=== PATIENT | female | born 1950 | race Caucasian/White ===

== ENCOUNTER 2021-06-02 11:55 | Inpatient (IN) | payer MEDICARE ==
[2021-06-02 13:39] LABS: #Eosinphils 0.1 10x3/uL (0.0-0.5); #Monocytes 0.4 10x3/uL (0.0-1.1); #Neutrophils 3.5 10x3/uL (1.5-8.4); %Basophils 0.6 % (0.0-2.0); %Eosinophils 2.5 % (0.0-6.0); %Lymphocytes 20.9 % (18.0-47.0); %Monocytes 7.7 % (0.0-10.0); %Neutrophils 67.7 % (40.0-75.0); Hemoglobin 11.3 g/dL (12.0-15.5); Mean Corpuscular HGB CONC 29.2 g/dL (32.0-36.0); Mean Corpuscular Hemoglobin 25.1 pg (27.0-33.0); Mean Platelet Volume 10.3 fl (7.4-10.4); Platelet Count 191 10x3/uL (150-450); RBC Distribution Width 20.7 % (11.5-14.5); White Blood Cell (WBC) Count 5.2 10x3/uL (3.5-10.5)
[2021-06-02 13:56] LABS: ALT (SGPT) 12 U/L (8-55); AST (SGOT) 15 U/L (5-34); Albumin 3.2 g/dL (3.4-4.8); Alkaline Phosphatase 75 U/L (40-110); Anion Gap 13 mmol/L (10-20); BUN (Urea Nitrogen) 21 mg/dL (9.8-20.1); Bilirubin, Total 0.6 mg/dL (0.2-1.2); Calc. Creatinine Clearance 0 mL/min (70-130); Calcium 8.2 mg/dL (7.8-10.44); Carbon Dioxide 31 mmol/L (23-31); Chloride 99 mmol/L (98-107); Globulin 2.3 g/dL (2.4-3.5); Glucose 135 mg/dL (80-115); Potassium 3.1 mmol/L (3.5-5.1); Protein, Total 5.5 g/dL (5.8-8.1); Sodium 140 mmol/L (136-145)
[2021-06-02] MEDS ORDERED: Furosemide 40 MG/4 ML VIAL ONE ×2 (14:17→22:57)
[2021-06-02] MEDS ORDERED: Potassium Chloride 20 MEQ TAB ONE (14:17)
[2021-06-02 14:55] LABS: Ovalocytes SLIGHT = 2-5 cells (100X) (0-1/hpf); Platelet Morphology Comment Appears Adequate
[2021-06-02] MEDS ORDERED: traMADol HCl 50 MG TAB ONE (17:40)
[2021-06-02] MEDS ORDERED: HumaLOG 300 UNITS/3 ML VIAL SC PRN ×2 (19:45)
[2021-06-02] MEDS ORDERED: Ondansetron ODT 4 MG TAB PO PRN (19:45)
[2021-06-02] MEDS ORDERED: Dextrose 50% Abboject 50 ML SYRINGE SLOW IVP PRN (19:45)
[2021-06-02] MEDS ORDERED: Acetaminophen 325 MG TAB PO PRN (19:45)
[2021-06-02] MEDS ORDERED: Dextrose 5% in Water 1,000 ML IV PRN (19:45)
[2021-06-02] MEDS ORDERED: Acetaminophen 650 MG Suppository PR PRN (19:45)
[2021-06-02] MEDS ORDERED: Ondansetron PF 4 MG/2 ML Vial IVP PRN (19:45)
[2021-06-02] MEDS ORDERED: Electrolyte Replacement Protocol 1 EACH FS SCH (20:30)
[2021-06-02 23:51] LABS: Anion Gap 13 mmol/L (10-20); BUN (Urea Nitrogen) 20 mg/dL (9.8-20.1); Calc. Creatinine Clearance 0 mL/min (70-130); Calcium 8.2 mg/dL (7.8-10.44); Carbon Dioxide 28 mmol/L (23-31); Chloride 101 mmol/L (98-107); Glucose 137 mg/dL (80-115); Sodium 138 mmol/L (136-145)
[2021-06-02] MEDS ORDERED: Furosemide 40 MG/4 ML VIAL SLOW IVP SCH (23:59)
[2021-06-03] MEDS ORDERED: traMADol HCl 50 MG TAB ONE (03:05)
[2021-06-03 03:19] LABS: #Eosinphils 0.2 10x3/uL (0.0-0.5); #Monocytes 0.5 10x3/uL (0.0-1.1); #Neutrophils 2.9 10x3/uL (1.5-8.4); %Basophils 0.6 % (0.0-2.0); %Eosinophils 3.1 % (0.0-6.0); %Lymphocytes 30.4 % (18.0-47.0); %Monocytes 9.7 % (0.0-10.0); Hemoglobin 13.2 g/dL (12.0-15.5); Mean Corpuscular HGB CONC 28.7 g/dL (32.0-36.0); Mean Platelet Volume 10.2 fl (7.4-10.4); Platelet Count 190 10x3/uL (150-450); Platelet Morphology Comment Appears Adequate; RBC Distribution Width 21.4 % (11.5-14.5); RBC Morphology Normal; Red Blood Cell (RBC) Count 5.29 10x6/uL (3.90-5.03); White Blood Cell (WBC) Count 5.2 10x3/uL (3.5-10.5)
[2021-06-03 03:44] LABS: Anion Gap 17 mmol/L (10-20); BUN (Urea Nitrogen) 20 mg/dL (9.8-20.1); Calc. Creatinine Clearance 0 mL/min (70-130); Calcium 8.7 mg/dL (7.8-10.44); Carbon Dioxide 29 mmol/L (23-31); Chloride 98 mmol/L (98-107); Glucose 102 mg/dL (80-115); Potassium 4.6 mmol/L (3.5-5.1); Sodium 139 mmol/L (136-145)
[2021-06-03] MEDS ORDERED: Furosemide 100 MG/10 ML VIAL ONE (08:36)
[2021-06-03] MEDS ORDERED: Furosemide 40 MG/4 ML VIAL SLOW IVP SCH (09:00)
[2021-06-03] MEDS: Furosemide 40 MG/4 ML VIAL SLOW IVP SCH ×2 (09:16→14:28)
[2021-06-03] MEDS ORDERED: traMADol HCl 50 MG TAB PO PRN (13:16)
[2021-06-03 15:39] VITALS: BMI 40.9
[2021-06-03] MEDS: Metoprolol Tartrate 25 MG TAB PO SCH (20:29)
[2021-06-03] MEDS: Apixaban 5 MG TAB PO SCH (20:29)
[2021-06-04 04:42] LABS: ALT (SGPT) 10 U/L (8-55); AST (SGOT) 14 U/L (5-34); Albumin 2.9 g/dL (3.4-4.8); Alkaline Phosphatase 77 U/L (40-110); Anion Gap 15 mmol/L (10-20); BUN (Urea Nitrogen) 20 mg/dL (9.8-20.1); Bilirubin, Total 0.6 mg/dL (0.2-1.2); Calc. Creatinine Clearance 74 mL/min (70-130); Calcium 8.3 mg/dL (7.8-10.44); Carbon Dioxide 31 mmol/L (23-31); Chloride 98 mmol/L (98-107); Globulin 2.3 g/dL (2.4-3.5); Glucose 122 mg/dL (80-115); Potassium 3.5 mmol/L (3.5-5.1); Protein, Total 5.2 g/dL (5.8-8.1); Sodium 140 mmol/L (136-145)
[2021-06-04] MEDS ORDERED: Levothyroxine Sodium 100 MCG TAB PO SCH (06:00)
[2021-06-04] MEDS ORDERED: Potassium Chloride 20 MEQ TAB PO SCH (06:00)
[2021-06-04] MEDS: Furosemide 40 MG/4 ML VIAL SLOW IVP SCH (07:30)
[2021-06-04] MEDS ORDERED: Cholecalciferol 1,000 UNITS (25 MCG) TAB PO SCH (09:00)
[2021-06-04] MEDS ORDERED: SITAGLIPTIN PHOSPHATE 100 MG PO SCH (09:00)
[2021-06-04] MEDS ORDERED: CeleCOXIB 100 MG CAP PO SCH (09:00)
[2021-06-04] MEDS ORDERED: Alogliptin 25 MG TAB PO SCH (09:00)
[2021-06-04] MEDS ORDERED: Fish Oil 1,000 MG CAP PO SCH (09:00)
[2021-06-04] MEDS ORDERED: PATIENT'S HOME MEDICATION PO SCH ×2 (09:00)
[2021-06-04] MEDS: Apixaban 5 MG TAB PO SCH (09:54)
[2021-06-04] MEDS: Metoprolol Tartrate 25 MG TAB PO SCH (09:54)
[2021-06-04] MEDS ORDERED: diphenhydrAMINE 25 MG CAP PO SCH (12:00)
[2021-06-04 12:14] LABS: Potassium 4.3 mmol/L (3.5-5.1)
[2021-06-04 12:18] LABS: Hemoglobin A1c 6.9 % (4.0-6.0)
[2021-06-04 12:48] VITALS: TEMP 97.7
[2021-06-04 14:01] LABS: Free T4 (Free Thyroxine) 0.98 ng/dL (0.70-1.48)
[2021-06-04 15:28] VITALS: BP 109/55
[2021-06-04] MEDS ORDERED: Bumetanide 1 MG TAB PO SCH (16:30)
== END 2021-06-04 17:02 | disposition home or self-care (01) | DRG 291 ==
LOC: CSHERS 11:55 → UNDOADMIN 23:31 → CSHERHOLD 23:31 → CSHICU 06-03 12:11 → CSHTELE 06-03 18:38 → UNDODISIN 06-04 17:02
PROVIDERS: ADMIT Family Medicine; ATTEND Family Medicine
DX: I13.0 Hypertensive heart and chronic kidney disease with heart failure and stage 1 through stage 4 chronic kidney disease, or unspecified chronic kidney disease (principal); I50.43 Acute on chronic combined systolic (congestive) and diastolic (congestive) heart failure; I48.21 Permanent atrial fibrillation; E03.9 Hypothyroidism, unspecified; E11.22 Type 2 diabetes mellitus with diabetic chronic kidney disease; N18.9 Chronic kidney disease, unspecified; D63.1 Anemia in chronic kidney disease; E78.5 Hyperlipidemia, unspecified; G89.29 Other chronic pain; M17.12 Unilateral primary osteoarthritis, left knee; E87.6 Hypokalemia; Z79.01 Long term (current) use of anticoagulants; Z79.899 Other long term (current) drug therapy; Z79.4 Long term (current) use of insulin; Z98.890 Other specified postprocedural states
CPT/HCPCS: 36415; 36416; 71045; 80048; 80053; 83036; 83735; 83880; 84439; 84443; 84481; 84484; 85025; 93005; 93306; 94760; 97139; J1815; J1940

== ENCOUNTER 2021-06-18 16:58 | Emergency (ER) | payer OTHER, MEDICARE ==
[2021-06-18] MEDS ORDERED: Boostrix 0.5 ML (Tdap) VIAL ONE (17:42)
[2021-06-18] MEDS ORDERED: Acetaminophen 500 MG TAB ONE (17:43)
[2021-06-18 19:11] LABS: #Basophils 0.1 10x3/uL (0.0-0.2); #Eosinphils 0.1 10x3/uL (0.0-0.5); #Monocytes 0.7 10x3/uL (0.0-1.1); #Neutrophils 3.5 10x3/uL (1.5-8.4); %Basophils 0.8 % (0.0-2.0); %Eosinophils 1.2 % (0.0-6.0); %Lymphocytes 27.1 % (18.0-47.0); %Monocytes 11.2 % (0.0-10.0); Hemoglobin 13.7 g/dL (12.0-15.5); Mean Corpuscular HGB CONC 30.6 g/dL (32.0-36.0); Mean Corpuscular Hemoglobin 25.8 pg (27.0-33.0); Mean Corpuscular Volume 84.2 fl (81.6-98.3); Mean Platelet Volume 10.4 fl (7.4-10.4); Platelet Count 240 10x3/uL (150-450); Red Blood Cell (RBC) Count 5.31 10x6/uL (3.90-5.03); White Blood Cell (WBC) Count 5.9 10x3/uL (3.5-10.5)
[2021-06-18 19:14] LABS: PTT 27.7 sec (22.0-33.0); Prothrombin Time 11.1 sec (9.5-12.1)
[2021-06-18 19:17] LABS: ALT (SGPT) 11 U/L (8-55); AST (SGOT) 21 U/L (5-34); Albumin 3.8 g/dL (3.4-4.8); Alkaline Phosphatase 91 U/L (40-110); Anion Gap 17 mmol/L (10-20); BUN (Urea Nitrogen) 28 mg/dL (9.8-20.1); Bilirubin, Total 0.5 mg/dL (0.2-1.2); Calc. Creatinine Clearance 0 mL/min (70-130); Calcium 9.4 mg/dL (7.8-10.44); Carbon Dioxide 26 mmol/L (23-31); Chloride 91 mmol/L (98-107); Globulin 3.6 g/dL (2.4-3.5); Glucose 152 mg/dL (80-115); Potassium 3.8 mmol/L (3.5-5.1); Protein, Total 7.4 g/dL (5.8-8.1); Sodium 130 mmol/L (136-145)
[2021-06-18 19:30] LABS: SARS-CoV-2 NAA Rapid Test Not Detected (NotDetected)
== END 2021-06-18 22:21 | disposition short-term general hospital (02) ==
LOC: CSHERS 16:58
DX: S01.01XA Laceration without foreign body of scalp, initial encounter (principal); S06.5X0A Traumatic subdural hemorrhage without loss of consciousness, initial encounter; W01.10XA Fall on same level from slipping, tripping and stumbling with subsequent striking against unspecified object, initial encounter; Z20.822 Contact with and (suspected) exposure to COVID-19; E11.9 Type 2 diabetes mellitus without complications; E03.9 Hypothyroidism, unspecified; I10 Essential (primary) hypertension; M19.90 Unspecified osteoarthritis, unspecified site
CPT/HCPCS: 12001; 70450; 80053; 85025; 85610; 85730; 90471; 90715; 99284; U0002

== ENCOUNTER 2021-06-24 10:45 | Outpatient (CLI) | payer MEDICARE | END 2021-06-24 10:46 | disposition home or self-care (01) | LOC: CSHCT 10:45 | PROVIDERS: ATTEND Neurological Surgery | DX: R51.9 Headache, unspecified (principal); S06.2X9D Diffuse traumatic brain injury with loss of consciousness of unspecified duration, subsequent encounter | CPT/HCPCS: 70450 ==

== ENCOUNTER 2021-07-22 08:53 | Outpatient (CLI) | payer MEDICARE | END 2021-07-22 08:54 | disposition home or self-care (01) | LOC: CSHCT 08:53 | PROVIDERS: ATTEND Neurological Surgery | DX: S06.5X0S Traumatic subdural hemorrhage without loss of consciousness, sequela (principal); S06.5X0A Traumatic subdural hemorrhage without loss of consciousness, initial encounter | CPT/HCPCS: 70450 ==

== ENCOUNTER 2021-08-08 10:03 | Emergency (ER) | payer MEDICARE | END 2021-08-08 13:57 | disposition home or self-care (01) | LOC: CSHERS 10:03 | DX: S70.02XA Contusion of left hip, initial encounter (principal); S09.90XA Unspecified injury of head, initial encounter; E11.9 Type 2 diabetes mellitus without complications; E03.9 Hypothyroidism, unspecified; I10 Essential (primary) hypertension; W19.XXXA Unspecified fall, initial encounter | CPT/HCPCS: 70450; 72170 ==

== ENCOUNTER 2021-09-30 08:41 | Outpatient (CLI) | payer MEDICARE | END 2021-09-30 08:42 | disposition home or self-care (01) | LOC: CSHCT 08:41 | PROVIDERS: ATTEND Neurological Surgery | DX: S06.5X0A Traumatic subdural hemorrhage without loss of consciousness, initial encounter (principal); W19.XXXA Unspecified fall, initial encounter; G93.89 Other specified disorders of brain | CPT/HCPCS: 70450 ==

== ENCOUNTER 2021-12-28 15:32 | Inpatient (IN) | payer MEDICARE ==
[2021-12-28 16:17] LABS: #Basophils 0.1 10x3/uL (0.0-0.2); #Eosinphils 0.1 10x3/uL (0.0-0.5); #Monocytes 0.4 10x3/uL (0.0-1.1); #Neutrophils 3.8 10x3/uL (1.5-8.4); %Basophils 1.1 % (0.0-2.0); %Eosinophils 1.1 % (0.0-6.0); %Lymphocytes 31.2 % (18.0-47.0); %Neutrophils 59.3 % (40.0-75.0); Hemoglobin 15.7 g/dL (12.0-15.5); Mean Corpuscular HGB CONC 33.3 g/dL (32.0-36.0); Mean Corpuscular Hemoglobin 30.7 pg (27.0-33.0); Mean Corpuscular Volume 92.2 fl (81.6-98.3); Mean Platelet Volume 9.9 fl (7.4-10.4); Platelet Count 236 10x3/uL (150-450); Red Blood Cell (RBC) Count 5.12 10x6/uL (3.90-5.03); White Blood Cell (WBC) Count 6.3 10x3/uL (3.5-10.5)
[2021-12-28 16:38] LABS: ALT (SGPT) 18 U/L (8-55); AST (SGOT) 24 U/L (5-34); Albumin 3.6 g/dL (3.4-4.8); Alkaline Phosphatase 83 U/L (40-110); Anion Gap 15 mmol/L (10-20); BUN (Urea Nitrogen) 26 mg/dL (9.8-20.1); Bilirubin, Total 0.8 mg/dL (0.2-1.2); Calc. Creatinine Clearance 0 mL/min (70-130); Calcium 9.5 mg/dL (7.8-10.44); Carbon Dioxide 25 mmol/L (23-31); Chloride 97 mmol/L (98-107); Estimated GFR 46; Globulin 2.4 g/dL (2.4-3.5); Glucose 158 mg/dL (80-115); Potassium 4.3 mmol/L (3.5-5.1); Sodium 133 mmol/L (136-145)
[2021-12-28 17:11] LABS: INR-International Normal Ratio 1.1; PTT 29.2 sec (22.0-33.0); Prothrombin Time 11.4 sec (9.5-12.1)
[2021-12-28] MEDS ORDERED: Furosemide 40 MG/4 ML VIAL ONE (17:34)
[2021-12-28] MEDS ORDERED: Nitroglycerin 2% Ointment 1 INCH/1 GM Packet ONE (17:34)
[2021-12-28 19:18] LABS: Troponin I 0.011 ng/mL (< 0.028)
[2021-12-28] MEDS ORDERED: Ondansetron PF 4 MG/2 ML Vial IVP PRN (21:35)
[2021-12-28] MEDS ORDERED: Dextrose 5% in Water 1,000 ML IV PRN (21:35)
[2021-12-28] MEDS ORDERED: Acetaminophen 325 MG TAB PO PRN (21:35)
[2021-12-28] MEDS ORDERED: Dextrose 50% Abboject 50 ML SYRINGE SLOW IVP PRN (21:35)
[2021-12-28] MEDS ORDERED: Amitriptyline HCl 25 MG TAB PO SCH (21:45)
[2021-12-28] MEDS ORDERED: Apixaban 5 MG TAB PO SCH (21:45)
[2021-12-28 21:53] VITALS: BMI 30.7
[2021-12-28 22:30] LABS: Troponin I 0.015 ng/mL (< 0.028)
[2021-12-28] MEDS: HumaLOG 300 UNITS/3 ML VIAL SC PRN (23:02)
[2021-12-29 05:07] LABS: #Basophils 0.1 10x3/uL (0.0-0.2); #Eosinphils 0.1 10x3/uL (0.0-0.5); #Monocytes 0.5 10x3/uL (0.0-1.1); #Neutrophils 3.4 10x3/uL (1.5-8.4); %Eosinophils 0.8 % (0.0-6.0); %Lymphocytes 33.9 % (18.0-47.0); Hemoglobin 15.5 g/dL (12.0-15.5); Mean Corpuscular HGB CONC 33.3 g/dL (32.0-36.0); Mean Corpuscular Hemoglobin 29.8 pg (27.0-33.0); Mean Corpuscular Volume 89.6 fl (81.6-98.3); Platelet Count 213 10x3/uL (150-450); RBC Distribution Width 14.2 % (11.5-14.5); White Blood Cell (WBC) Count 6.1 10x3/uL (3.5-10.5)
[2021-12-29 05:28] LABS: Anion Gap 15 mmol/L (10-20); BUN (Urea Nitrogen) 26 mg/dL (9.8-20.1); Calc. Creatinine Clearance 62 mL/min (70-130); Calcium 9.1 mg/dL (7.8-10.44); Carbon Dioxide 26 mmol/L (23-31); Chloride 99 mmol/L (98-107); Estimated GFR 49; Glucose 162 mg/dL (80-115); Potassium 3.4 mmol/L (3.5-5.1); Sodium 137 mmol/L (136-145)
[2021-12-29] MEDS: Levothyroxine Sodium 100 MCG TAB PO SCH (05:31)
[2021-12-29] MEDS: Furosemide 40 MG/4 ML VIAL SLOW IVP SCH ×2 (05:31→14:19)
[2021-12-29] MEDS: HumaLOG 300 UNITS/3 ML VIAL SC PRN ×2 (05:35→21:08)
[2021-12-29] MEDS: Azelastine 137 MCG/Spray 30 ML NS SCH (08:33)
[2021-12-29] MEDS: Empagliflozin 10 MG TAB PO SCH (08:33)
[2021-12-29] MEDS: Famotidine 20 MG TAB PO SCH (08:35)
[2021-12-29] MEDS: Alogliptin 6.25 MG TAB PO SCH (08:35)
[2021-12-29] MEDS: Cholecalciferol 1,000 UNITS (25 MCG) TAB PO SCH (08:36)
[2021-12-29] MEDS: Apixaban 5 MG TAB PO SCH ×2 (08:36→21:10)
[2021-12-29] MEDS ORDERED: MEDROXYPROGESTERONE PO SCH (09:00)
[2021-12-29] MEDS ORDERED: IRON CARBONYL 45 MG PO SCH (09:00)
[2021-12-29] MEDS ORDERED: [UNRECOGNIZED DRUG - OTHER] PO SCH (09:00)
[2021-12-29] MEDS ORDERED: CONJUGATED ESTROGENS PO SCH (09:00)
[2021-12-29] MEDS ORDERED: Amitriptyline HCl 25 MG TAB PO SCH (21:00)
[2021-12-30] MEDS: Furosemide 40 MG/4 ML VIAL SLOW IVP SCH ×2 (05:48→17:15)
[2021-12-30] MEDS: Levothyroxine Sodium 100 MCG TAB PO SCH (05:48)
[2021-12-30] MEDS: HumaLOG 300 UNITS/3 ML VIAL SC PRN (06:03)
[2021-12-30] MEDS: Famotidine 20 MG TAB PO SCH (09:04)
[2021-12-30] MEDS: Azelastine 137 MCG/Spray 30 ML NS SCH (09:05)
[2021-12-30] MEDS: Apixaban 5 MG TAB PO SCH (09:05)
[2021-12-30] MEDS: Cholecalciferol 1,000 UNITS (25 MCG) TAB PO SCH (09:06)
[2021-12-30] MEDS: Empagliflozin 10 MG TAB PO SCH (09:06)
[2021-12-30] MEDS: Alogliptin 6.25 MG TAB PO SCH (09:06)
[2021-12-30 09:22] LABS: #Basophils 0.1 10x3/uL (0.0-0.2); #Eosinphils 0.1 10x3/uL (0.0-0.5); #Monocytes 0.5 10x3/uL (0.0-1.1); #Neutrophils 4.1 10x3/uL (1.5-8.4); %Basophils 0.9 % (0.0-2.0); %Eosinophils 0.9 % (0.0-6.0); %Lymphocytes 29.2 % (18.0-47.0); %Monocytes 7.7 % (0.0-10.0); %Neutrophils 60.9 % (40.0-75.0); Hemoglobin 17.2 g/dL (12.0-15.5); Mean Corpuscular HGB CONC 32.8 g/dL (32.0-36.0); Mean Corpuscular Volume 91.4 fl (81.6-98.3); Mean Platelet Volume 9.6 fl (7.4-10.4); Platelet Count 213 10x3/uL (150-450); RBC Distribution Width 13.8 % (11.5-14.5); Red Blood Cell (RBC) Count 5.73 10x6/uL (3.90-5.03); White Blood Cell (WBC) Count 6.7 10x3/uL (3.5-10.5)
[2021-12-30 09:39] LABS: Anion Gap 15 mmol/L (10-20); BUN (Urea Nitrogen) 23 mg/dL (9.8-20.1); Calc. Creatinine Clearance 58 mL/min (70-130); Calcium 9.3 mg/dL (7.8-10.44); Carbon Dioxide 33 mmol/L (23-31); Chloride 94 mmol/L (98-107); Estimated GFR 45; Glucose 128 mg/dL (80-115); Potassium 3.3 mmol/L (3.5-5.1); Sodium 139 mmol/L (136-145)
[2021-12-30 09:47] LABS: Free T4 (Free Thyroxine) 0.84 ng/dL (0.70-1.48)
[2021-12-30 10:18] LABS: Thyroid Stimulating Hormone 101.9066 uIU/mL (0.35-4.94)
[2021-12-30 15:12] VITALS: BP 132/83; TEMP 97.8
== END 2021-12-30 15:32 | disposition home or self-care (01) | DRG 291 ==
LOC: CSHERS 15:32 → CSHTELE 20:44 → OBSVTOIN 12-30 09:45
PROVIDERS: ADMIT Internal Medicine; ATTEND Internal Medicine
DX: I13.0 Hypertensive heart and chronic kidney disease with heart failure and stage 1 through stage 4 chronic kidney disease, or unspecified chronic kidney disease (principal); I50.43 Acute on chronic combined systolic (congestive) and diastolic (congestive) heart failure; I48.92 Unspecified atrial flutter; E87.1 Hypo-osmolality and hyponatremia; I48.20 Chronic atrial fibrillation, unspecified; M19.90 Unspecified osteoarthritis, unspecified site; E03.9 Hypothyroidism, unspecified; Z66 Do not resuscitate; I16.0 Hypertensive urgency; I35.0 Nonrheumatic aortic (valve) stenosis; E11.22 Type 2 diabetes mellitus with diabetic chronic kidney disease; N18.30 Chronic kidney disease, stage 3 unspecified; E87.6 Hypokalemia; Z20.822 Contact with and (suspected) exposure to COVID-19; Z79.4 Long term (current) use of insulin; Z79.899 Other long term (current) drug therapy; Z98.890 Other specified postprocedural states; Z88.8 Allergy status to other drugs, medicaments and biological substances
CPT/HCPCS: 36415; 36416; 71045; 80048; 80053; 83880; 84439; 84443; 84484; 85025; 85610; 85730; 93005; 93306; 94760; 96374; 96376; G0378; J1815; J1940; U0003; U0005

== ENCOUNTER 2022-04-07 10:42 | Emergency (ER) | payer OTHER, MEDICARE ==
[2022-04-07 11:25] LABS: #Basophils 0.1 10x3/uL (0.0-0.2); #Eosinphils 0.1 10x3/uL (0.0-0.5); #Monocytes 0.5 10x3/uL (0.0-1.1); #Neutrophils 5.8 10x3/uL (1.5-8.4); %Basophils 0.7 % (0.0-2.0); %Eosinophils 1.2 % (0.0-6.0); %Lymphocytes 20.6 % (18.0-47.0); %Monocytes 5.7 % (0.0-10.0); %Neutrophils 71.3 % (40.0-75.0); Hemoglobin 15.2 g/dL (12.0-15.5); Mean Corpuscular HGB CONC 33.9 g/dL (32.0-36.0); Mean Corpuscular Hemoglobin 30.3 pg (27.0-33.0); Mean Corpuscular Volume 89.4 fl (81.6-98.3); Platelet Count 309 10x3/uL (150-450); RBC Distribution Width 13.8 % (11.5-14.5); Red Blood Cell (RBC) Count 5.01 10x6/uL (3.90-5.03); White Blood Cell (WBC) Count 8.1 10x3/uL (3.5-10.5)
[2022-04-07 15:05] LABS: ALT (SGPT) 11 U/L (8-55); AST (SGOT) 15 U/L (5-34); Albumin 3.8 g/dL (3.4-4.8); Alkaline Phosphatase 94 U/L (40-110); Anion Gap 13 mmol/L (10-20); BUN (Urea Nitrogen) 41 mg/dL (9.8-20.1); Bilirubin, Total 0.8 mg/dL (0.2-1.2); Calc. Creatinine Clearance 0 mL/min (70-130); Calcium 9.7 mg/dL (7.8-10.44); Carbon Dioxide 29 mmol/L (23-31); Chloride 100 mmol/L (98-107); Estimated GFR 44; Globulin 3.1 g/dL (2.4-3.5); Glucose 116 mg/dL (80-115); Potassium 3.6 mmol/L (3.5-5.1); Protein, Total 6.9 g/dL (5.8-8.1); Sodium 138 mmol/L (136-145)
[2022-04-07 16:39] LABS: Bilirubin Neg (Negative); Blood, Urine Negative (Negative); Clarity Clear (Clear); Glucose, Urine (Dipstick) 250 mg/dL (Negative); Ketone, Urine Negative (Negative); Leukocyte Negative (Negative); Nitrite Negative (Negative); Protein, Urine (Dipstick) 100 mg/dl (Neg-Trace); Urobilinogen Normal mg/dL (Less than 2); pH, Urine 6.5 (5.0-9.0)
[2022-04-07 16:58] LABS: Bacteria/HPF Rare-Few HPF (None Seen); Mucous/LPF Rare LPF (<2+); RBC/HPF 0-3 HPF (0-3); Squamous Epithelial 0-3 HPF (0-3); WBC/HPF 0-3 HPF (0-3)
== END 2022-04-07 15:24 | disposition home or self-care (01) ==
LOC: CSHERS 10:42
DX: S46.911A Strain of unspecified muscle, fascia and tendon at shoulder and upper arm level, right arm, initial encounter (principal); S00.03XA Contusion of scalp, initial encounter; E86.0 Dehydration; E11.9 Type 2 diabetes mellitus without complications; Z79.4 Long term (current) use of insulin; E03.9 Hypothyroidism, unspecified; I10 Essential (primary) hypertension; W01.10XA Fall on same level from slipping, tripping and stumbling with subsequent striking against unspecified object, initial encounter
CPT/HCPCS: 36415; 70450; 71045; 80053; 81003; 81015; 84484; 85025; 87086; 93005

== ENCOUNTER 2025-04-07 11:51 | Emergency (ER) | payer MEDICARE ==
[2025-04-07] MEDS ORDERED: Acetaminophen 500 MG TAB ONE (12:24)
[2025-04-07 12:42] LABS: #Basophils Less than 0.03 10x3/uL (0.0-0.2); #Eosinophils 0.08 10x3/uL (0.0-0.5); #Monocytes 0.47 10x3/uL (0.0-1.1); #Neutrophils 4.21 10x3/uL (1.5-8.4); %Basophils 0.3 % (0.0-2.0); %Eosinophils 1.2 % (0.0-6.0); %Lymphocytes 25.0 % (18.0-47.0); %Monocytes 7.3 % (0.0-10.0); %Neutrophils 65.1 % (40.0-75.0); Hematocrit 45.6 % (34.9-44.5); Hemoglobin 14.4 g/dL (12.0-15.5); Mean Corpuscular Hemoglobin 29.3 pg (27.0-33.0); Mean Corpuscular Volume 92.9 fL (81.6-98.3); Platelet Count 144 10x3/uL (150-450); Red Blood Cell (RBC) Count 4.91 10x6/uL (3.90-5.03); White Blood Cell (WBC) Count 6.47 10x3/uL (3.5-10.5)
[2025-04-07 12:56] LABS: ALT (SGPT) 15 U/L (Less than 34); AST (SGOT) 26 U/L (11-34); Albumin 3.5 g/dL (3.1-4.5); Alkaline Phosphatase 72 U/L (40-110); Anion Gap 12 mmol/L (10-20); BUN (Urea Nitrogen) 30 mg/dL (9.8-20.1); Bilirubin, Total 0.6 mg/dL (0.3-1.2); Calc. Creatinine Clearance 0 mL/min (70-130); Calcium 9.0 mg/dL (7.8-10.44); Carbon Dioxide 28 mmol/L (23-31); Chloride 106 mmol/L (98-107); Globulin 2.8 g/dL (2.4-3.5); Glucose 221 mg/dL (83-110); Potassium 4.2 mmol/L (3.5-5.1); Sodium 142 mmol/L (136-145)
[2025-04-07] MEDS ORDERED: Boostrix 0.5 ML (Tdap) VIAL (>/=7 yrs of age) ONE (15:02)
== END 2025-04-07 15:30 | disposition home or self-care (01) ==
LOC: CSHERS 11:51
DX: S00.01XA Abrasion of scalp, initial encounter (principal); E11.9 Type 2 diabetes mellitus without complications; I10 Essential (primary) hypertension; I48.91 Unspecified atrial fibrillation; Z23 Encounter for immunization; Z79.4 Long term (current) use of insulin; Z79.02 Long term (current) use of antithrombotics/antiplatelets; W01.10XA Fall on same level from slipping, tripping and stumbling with subsequent striking against unspecified object, initial encounter
CPT/HCPCS: 70450; 71045; 72125; 72170; 80053; 85025; 90471; 90715; 93005; 93010; G0390